=== PATIENT | female | born 1990 | race Caucasian/White ===

== ENCOUNTER 2017-07-21 17:02 | Emergency (ER) | payer MEDICAID ==
[~2017-07-21] VITALS: Ht 165.1 cm; Wt 57.0 kg
[2017-07-21 19:22] VITALS: BP 120/88
== END 2017-07-21 19:21 | disposition home or self-care (01) ==
LOC: ER 17:30
DX: S60.447A External constriction of left little finger, initial encounter (principal); X58.XXXA Exposure to other specified factors, initial encounter; Y93.89 Activity, other specified; Y92.89 Other specified places as the place of occurrence of the external cause; Y99.8 Other external cause status
CPT/HCPCS: 99284